=== PATIENT | male | born 1995 | race Caucasian/White ===

== ENCOUNTER 2016-10-10 13:23 | Emergency (ER) | payer BC, OTHER ==
[~2016-10-10] VITALS: Ht 165.1 cm; Wt 79.3 kg
[~2016-10-10 13:23] MED LIST: ALPR0.5T PO; CALC667T2 PO; FURO-109 PO; ONDA4TAB35 PO; TRAZ100T15 PO; UDKCL40 PO
[2016-10-10 13:34] VITALS: Ht 165.1 cm; Wt 79.3 kg
[2016-10-10] MEDS ORDERED: LOPE2CAP PO (14:27)
[2016-10-10] MEDS ORDERED: DICY10CA60 PO (14:27)
[2016-10-10] MEDS ORDERED: AZIT500T3 PO (14:27)
--- NOTE | 2016-10-10 15:07 | ERD ---
ER Documentation Chief Complaint Date/Time DATE: 10/10/16 TIME: 15:04 Chief Complaint DIARRHEA X2 DAYS HPI 21-year-old male comes to emergency department with 2 day history of nonbloody diarrhea. Patient states that he was recently eating a quesadilla at a taco truck, his friend was also sick, she had gone to the hospital for vomiting and diarrhea. He also has had associated symptoms of cough. Reports tactile fevers. He reports lower abdominal cramping. ROS All systems reviewed and are negative except as per history of present illness. Medications Home Meds Active Scripts Azithromycin* (Zithromax*) 500 Mg Tablet, 500 MG PO DAILY for 3 Days, TAB Prov:CARL CAZARES PA-C 10/10/16 Loperamide Hcl* (Imodium*) 2 Mg Capsule, 2 MG PO .WITH EACH DIARRHEA Y for DIARRHEA, #15 CAP MAX 16 mg/day Prov:CARL CAZARES PA-C 10/10/16 Dicyclomine Hcl* (Bentyl*) 10 Mg Capsule, 10 MG PO QID, #15 CAP Prov:CARL CAZARES PA-C 10/10/16 Calcium Acetate* (Phoslo*) 667 Mg Tablet, 667 MG PO WITH MEALS, #90 TAB Prov:SERGIO HWANG MD 08/18/14 Potassium Chloride* (KCl*) 40 Meq/30 Ml Soln, 10 MEQ PO DAILY, #30 MEQ Prov:SERGIO HWANG MD 08/18/14 Furosemide* (Lasix*) 40 Mg Tablet, 40 MG PO DAILY, #30 TAB Prov:SERGIO HWANG MD 08/18/14 Reported Medications Trazodone Hcl* (Trazodone Hcl*) 100 Mg Tablet, 100 MG PO HS, TAB 08/17/14 Alprazolam* (Xanax*) 0.5 Mg Tab, 0.5 MG PO DAILY Y for ANXIETY, TAB 08/17/14 Ondansetron Hcl* (Zofran* ODT) 4 mg -ODT Tab.disper, 4 MG PO Q6H Y for NAUSEA AND/OR VOMITING, TAB 08/17/14 Allergies Allergies: Coded Allergies: No Known Allergy (Unverified , 08/17/14) PMhx/Soc History of Surgery: No Anesthesia Reaction: No Hx Neurological Disorder: No Hx Respiratory Disorders: Yes (Asthma) Hx Cardiac Disorders: No Hx Psychiatric Problems: Yes (Anxiety/Panic Disorder, Depression) Hx Miscellaneous Medical Probl: No Hx Alcohol Use: Yes (Occasionally) Hx Substance Use: No Hx Tobacco Use: No Physical Exam Vitals Vital Signs Date Time Temp Pulse Resp B/P Pulse Ox O2 Delivery O2 Flow Rate FiO2 10/10/16 13:34 98.2 86 20 144/82 99 Physical Exam General: Well-developed, well-nourished. The patient appears in no acute distress. HEENT: Head is normocephalic, atraumatic. No scleral icterus. Pupils are equal , round, and reactive. Oral mucous membranes are moist. No pharyngeal erythema. Neck: Supple. Nontender. Lungs: Clear to auscultation. Normal air movement. Heart: Regular rate and rhythm. S1 and S2 are normal. No murmurs, gallops, or rubs. Abdomen: Soft, nontender, nondistended. Bowel sounds are normoactive. Extremities: No clubbing or cyanosis. Normal pulses. Moving extremities x 4. No weakness. Neurologic: Alert and oriented 3. No focal deficits. Skin: Normal turgor. No rash or lesions. Procedures/MDM 21-year-old male presents with diarrhea, cough and tactile fevers for 2 days. Clinically is well-appearing, is afebrile, there are no signs of appendicitis, diverticulitis, perforation of bowel, and abdominal abscess. His friend was also sick recently, given he developed a cough with diarrhea, it is unlikely related to foodborne illness. He'll be recommended to take Bentyl and Imodium for symptoms. If diarrhea does not improve an additional 2 days, he may build a prescription for antibiotics. In the meantime he was advised to do a clear liquid diet. Slowly advance diet. Return for fever or bloody stools. Departure Diagnosis: Primary Impression: Diarrhea Condition: Good Patient Instructions: Treating Diarrhea Additional Instructions: Call your primary care doctor TOMORROW for an appointment during the next 1-2 days.See the doctor sooner or return here if your condition worsens before your appointment time. CARL CAZARES PA-C Oct 10, 2016 15:07
== END 2016-10-10 14:26 | disposition home or self-care (01) ==
LOC: E/R 13:23
DX: R19.7 Diarrhea, unspecified (principal); J45.909 Unspecified asthma, uncomplicated
CPT/HCPCS: 99284